=== PATIENT | female | born 1970 | race African-American/Black ===

== ENCOUNTER 2018-07-22 23:07 | Emergency (ER) | payer OTHER ==
[~2018-07-22] VITALS: Ht 160 cm; Wt 72.6 kg
[2018-07-22] MEDS ORDERED: NEURONTIN300 MG ORAL (23:31)
[2018-07-22] MEDS ORDERED: RISPERDAL1 MG/1 ML PO (23:31)
[2018-07-22 23:40] VITALS: BP 136/106
--- NOTE | 2018-07-22 23:40 | NUR ---
ED Nurse Note: Patient walk in c/o lips twitching uncontrollably since Monday. Patient states she takes Risperadol injections. The last injection was 07/18/2018. Patient states she was having shortness of breath earlier today.
[2018-07-22] MEDS ORDERED: DiphenhydrAMINE 50mg/ml Inj IVP ONE (23:45)
[2018-07-23] MEDS ORDERED: BENZTROPINE ME0.5 MG PO (00:10)
--- NOTE | 2018-07-23 00:11 | Emergency Room Report ---
History of Present Illness General Chief Complaint: General Complaint Source: Patient Present Illness HPI Is a 48-year-old female with history bipolar. She was on lithium for it but switched to Risperdal for the last 2 months. She presents with chief complaint of involuntary movement of her lips and tongue. Onset today. No new medication. No increase in her current Risperdal prescription. No suicidal thought or homicidal thought. No other complaint. Allergies: Coded Allergies: No Known Allergies (Unverified , 07/22/18) Patient History Past Medical History: see triage record, old chart reviewed, psych hx Past Surgical History: other Pertinent Family History: none Social History: Denies: smoking Last Menstrual Period: JAYLEN Now: No Immunizations: other Reviewed Nursing Documentation: PMH: Agreed; PSxH: Agreed Nursing Documentation-PMH Past Medical History: No Stated History Hx Neurological Problems: Yes - panic attacks, PTSD, schizophrenia, manic depressive disorder Review of Systems Eye: Denies: eye pain, blurred vision ENT: Denies: ear pain, nose congestion, throat swelling Respiratory: Denies: cough, shortness of breath Cardiovascular: Denies: chest pain, palpitations Gastrointestinal: Denies: abdominal pain, diarrhea, nausea, vomiting Musculoskeletal: Denies: back pain, joint pain Skin: Denies: rash Neurological: Denies: headache, numbness Endocrine: Denies: increased thirst, increased urine Hematologic/Lymphatic: Denies: easy bruising All Other Systems: negative except mentioned in HPI Physical Exam Vital Signs Date Time Temp Pulse Resp B/P (MAP) Pulse Ox O2 Delivery O2 Flow Rate FiO2 07/22/18 23:27 98.2 90 16 136/106 95 Room Air vitals with high blood pressure. Repeat normal. Sp02 EP Interpretation: reviewed, normal General Appearance: well appearing, no apparent distress, alert Head: normocephalic, atraumatic Eyes: bilateral eye PERRL, bilateral eye EOMI ENT: hearing grossly normal, normal pharynx Neck: full range of motion, supple, no meningismus Respiratory: chest non-tender, lungs clear, normal breath sounds Cardiovascular #1: regular rate, rhythm, no murmur Gastrointestinal: normal bowel sounds, non tender, no mass, no organomegaly, no bruit, non-distended Musculoskeletal: back normal, gait/station normal, normal range of motion Neurologic: alert, oriented x3, other - Dystonic reaction to lips and tongue. Psychiatric: mood/affect normal Skin: warm/dry Medical Decision Making Diagnostic Impression: Primary Impression: Acute dystonic reaction due to drugs ER Course Patient with dystonic reaction to her Risperdal. Resolved after Benadryl. We' ll discharge home with prescription for Cogentin. Last Vital Signs Date Time Temp Pulse Resp B/P (MAP) Pulse Ox O2 Delivery O2 Flow Rate FiO2 07/22/18 23:40 90 16 Room Air 07/22/18 23:40 98.2 136/106 95 Status: improved Disposition: HOME, SELF-CARE Condition: Stable Scripts Benztropine Mesylate* (COGENTIN*) 0.5 Mg Tablet 0.5 MG PO DAILY, #30 TAB Prov: Spike Goldman MD 07/23/18 Additional Instructions: Take your Cogentin with your Risperdal. Follow-up with your doctor in 7 days. If symptoms continue, may have to stop Risperdal. Return if symptom worsen. Spike Goldman MD Jul 23, 2018 00:11
[2018-07-23 00:14] VITALS: BP 134/93
--- NOTE | 2018-07-23 00:16 | NUR ---
ER DISCHARGE NOTE: Patient is cleared to be discharged per ERMD, pt is aox4, on room air, with stable vital signs. pt was given dc and prescription instructions, pt was able to verbalize understanding, pt id band and iv site removed without complications. pt is able to ambulate with steady gait. pt took all belongings.
== END 2018-07-23 00:15 | disposition home or self-care (01) ==
LOC: EMR 23:29
DX: R25.8 Other abnormal involuntary movements (principal); Z79.899 Other long term (current) drug therapy; F20.9 Schizophrenia, unspecified; F32.9 Major depressive disorder, single episode, unspecified
CPT/HCPCS: 96374; 99284; J1200